=== PATIENT | male | born 2000 | race Caucasian/White ===

== ENCOUNTER 2023-04-13 14:02 | Emergency (ER) | payer OTHER ==
[~2023-04-13] VITALS: Ht 185.4 cm; Wt 84.1 kg
[2023-04-13 14:18] VITALS: BP 133/72; PULSE 63; RESP 16; TEMP 98.1
== END 2023-04-13 16:21 | disposition home or self-care (01) ==
LOC: EMS 14:03
DX: S01.81XA Laceration without foreign body of other part of head, initial encounter (principal); X58.XXXA Exposure to other specified factors, initial encounter; Y93.89 Activity, other specified; Y92.89 Other specified places as the place of occurrence of the external cause; Y99.8 Other external cause status
CPT/HCPCS: 12011; 99283